=== PATIENT | female | born 1955 | race African-American/Black ===

== ENCOUNTER 2022-11-15 11:11 | Inpatient (IN) | payer MEDICARE, MEDICAID ==
[~2022-11-15] VITALS: Ht 170.2 cm; Wt 104.1 kg
[2022-11-15] MEDS ORDERED: FUROSEMIDE 40MG/4ML VIAL IV ONE (12:45)
[2022-11-15 13:07] LABS: HEMATOCRIT. 39.1 % (36.0-48.0); HEMOGLOBIN. 12.7 g/dL (12.0-16.0); MEAN CORPUSCULAR HEMOGLOBIN 27.3 pg (28.0-32.0); MEAN CORPUSCULAR VOLUME 84.1 fL (81.0-99.0); MEAN PLATELET VOLUME 9.8 fl (7.4-10.4); PLATELET 113 x1000/uL (130-400); RED BLOOD CELL COUNT 4.64 mill/uL (4.2-5.4); RED CELL DISTRIBUTION WIDTH 16.8 % (11.6-14.6)
[2022-11-15 13:14] LABS: CHLORIDE 108 mEq/L (98-107)
[2022-11-15 13:44] LABS: PLATELET ESTIMATE DECREASED
[2022-11-15] MEDS ORDERED: DEXTROSE 50% WATER 50ML SYRINGE IV ONE (14:15)
[2022-11-15] MEDS ORDERED: PIPERACILLIN/TAZOBACTAM 3.375GM/50ML PREMIX IV ONE (14:15)
[2022-11-15] MEDS ORDERED: VANCOMYCIN 1G PREMIX 200 ML IV ONE (14:15)
[2022-11-15] MEDS ORDERED: SODIUM CHLORIDE 0.9% 500 ML IV ONE (14:30)
[2022-11-15] MEDS ORDERED: SODIUM CHLORIDE 3% 500 ML IV ONE (14:30)
[2022-11-15] MEDS ORDERED: FUROSEMIDE 100MG/10ML VIAL IV NR (14:45)
[2022-11-15] MEDS ORDERED: ASPIRIN 81MG TABLET PO NR (16:15)
[2022-11-15] MEDS ORDERED: ENOXAPARIN 100MG/ML SYR SUBCUT NR (16:15)
[2022-11-15] MEDS ORDERED: IPRATROPIUM/ALBUTEROL 0.5-3(2.5)MG/3ML NEB HHN SCH (18:00)
[2022-11-15] MEDS: CEFEPIME 2,000 MG in DEXT 5% WATER 100 ML IV SCH (18:29)
[2022-11-16] MEDS ORDERED: ACETAMINOPHEN 325MG TABLET PO PRN (01:15)
[2022-11-16] MEDS ORDERED: ONDANSETRON HCL 4MG/2ML INJ IV PRN (01:15)
[2022-11-16] MEDS ORDERED: IPRATROPIUM/ALBUTEROL 0.5-3(2.5)MG/3ML NEB NEB PRN (01:15)
[2022-11-16] MEDS: FAMOTIDINE 20MG TABLET PO SCH ×2 (01:23→22:45)
[2022-11-16 04:07] LABS: HEMOGLOBIN. 11.5 g/dL (12.0-16.0); MEAN CORPUSCULAR HEMOGLOBIN 26.9 pg (28.0-32.0); MEAN CORPUSCULAR VOLUME 81.6 fL (81.0-99.0); MEAN PLATELET VOLUME 10.8 fl (7.4-10.4); PLATELET 125 x1000/uL (130-400); RED BLOOD CELL COUNT 4.29 mill/uL (4.2-5.4); RED CELL DISTRIBUTION WIDTH 17.1 % (11.6-14.6)
[2022-11-16 04:16] LABS: CHLORIDE 114 mEq/L (98-107)
[2022-11-16] MEDS: CEFEPIME 2,000 MG in DEXT 5% WATER 100 ML IV SCH ×2 (04:30→16:06)
[2022-11-16 04:34] LABS: CREATINE KINASE MB FRACTION 22.9 ng/mL (0.5-3.6)
[2022-11-16] MEDS: IPRATROPIUM/ALBUTEROL 0.5-3(2.5)MG/3ML NEB HHN SCH ×4 (06:01→17:04)
[2022-11-16] MEDS: FUROSEMIDE 40MG/4ML VIAL IVP SCH ×2 (08:00→17:57)
[2022-11-16] MEDS: ENOXAPARIN 30MG/0.3ML SYR SUBCUT SCH ×2 (09:00→22:46)
[2022-11-16 12:14] LABS: PLATELET ESTIMATE NORMAL
[2022-11-16 16:33] LABS: CREATINE KINASE MB FRACTION 9.7 ng/mL (0.5-3.6)
[2022-11-16 22:00] VITALS: BP 102/72
[2022-11-16 23:28] VITALS: BP 142/72
[2022-11-17] VITALS: BP 129/61
[2022-11-17 04:00] VITALS: BP 125/60
[2022-11-17] MEDS: FUROSEMIDE 40MG/4ML VIAL IVP SCH ×2 (06:16→17:19)
[2022-11-17 06:59] LABS: HEMATOCRIT. 33.7 % (36.0-48.0); HEMOGLOBIN. 11.1 g/dL (12.0-16.0); MEAN CORPUSCULAR HEMOGLOBIN 26.9 pg (28.0-32.0); MEAN CORPUSCULAR VOLUME 82.1 fL (81.0-99.0); MEAN PLATELET VOLUME 10.5 fl (7.4-10.4); PLATELET 118 x1000/uL (130-400); RED BLOOD CELL COUNT 4.11 mill/uL (4.2-5.4); RED CELL DISTRIBUTION WIDTH 16.5 % (11.6-14.6)
[2022-11-17 08:00] VITALS: BP 130/60
[2022-11-17] MEDS ORDERED: DEXTROSE 50% WATER 50ML SYRINGE IV PRN (08:15)
[2022-11-17] MEDS: ENOXAPARIN 30MG/0.3ML SYR SUBCUT SCH ×2 (08:55→22:26)
[2022-11-17] MEDS ORDERED: LEVOFLOXACIN 500MG PREMIX 100 ML IV SCH (09:00)
[2022-11-17 11:38] LABS: PLATELET ESTIMATE SLIGHTLY DECREASED
[2022-11-17 12:00] VITALS: BP 126/62
[2022-11-17] MEDS: BLOOD SUGAR DIAGNOSTIC STRIP TEST SCH ×3 (12:27→21:00)
[2022-11-17] MEDS: INSULIN LISPRO 100 UNITS/ML SUBCUT SCH ×3 (13:17→22:28)
[2022-11-17] MEDS: VANCOMYCIN 1.25GM PMX (XELLIA) 250 ML IV SCH (17:20)
[2022-11-17] MEDS ORDERED: PIPERACILLIN/TAZOBACTAM 3.375 G in DEXTROSE 5% WATER 50 ML IV SCH (22:00)
[2022-11-17] MEDS ORDERED: PIPERACILLIN/TAZOBACTAM 3.375GM/50ML PREMIX IV ONE (22:00)
[2022-11-17] MEDS: FAMOTIDINE 20MG TABLET PO SCH (22:19)
[2022-11-17] MEDS: AZTREONAM 1 G in DEXTROSE 5% WATER 50 ML IV SCH (22:27)
[2022-11-18] VITALS: BP 142/75
[2022-11-18 04:00] VITALS: BP 137/71
[2022-11-18] MEDS: BLOOD SUGAR DIAGNOSTIC STRIP TEST SCH ×4 (06:43→20:19)
[2022-11-18] MEDS: INSULIN LISPRO 100 UNITS/ML SUBCUT SCH ×4 (06:46→20:45)
[2022-11-18] MEDS: AZTREONAM 1 G in DEXTROSE 5% WATER 50 ML IV SCH ×3 (06:49→20:45)
[2022-11-18] MEDS: FUROSEMIDE 40MG/4ML VIAL IVP SCH ×2 (06:49→17:59)
[2022-11-18 07:00] LABS: BASOPHILS % 0.3 % (0.0-2.0); EOSINOPHILS % 0.2 % (0.0-5.0); HEMATOCRIT. 31.2 % (36.0-48.0); HEMOGLOBIN. 10.5 g/dL (12.0-16.0); LYMPHOCYTES % 7.8 % (20.0-50.0); MEAN CORPUSCULAR HEMOGLOBIN 27.3 pg (28.0-32.0); MEAN CORPUSCULAR VOLUME 80.8 fL (81.0-99.0); MEAN PLATELET VOLUME 10.2 fl (7.4-10.4); MONOCYTES % 5.5 % (2.0-8.0); NEUTROPHILS % 86.2 % (40.0-76.0); PLATELET 122 x1000/uL (130-400); RED BLOOD CELL COUNT 3.87 mill/uL (4.2-5.4); RED CELL DISTRIBUTION WIDTH 16.2 % (11.6-14.6)
[2022-11-18 08:00] VITALS: BP 129/75
[2022-11-18 10:27] LABS: CHLORIDE 110 mEq/L (98-107)
[2022-11-18] MEDS: ENOXAPARIN 30MG/0.3ML SYR SUBCUT SCH ×2 (10:46→20:44)
[2022-11-18 12:00] VITALS: BP 141/74
[2022-11-18 13:04] LABS: BG BASE EXCESS 1.8 mmol/L (-2.0-2.0); BG CARBOXYHEMOGLOBIN 0.5 % (0.5-1.5); BG DEOXYHEMOGLOBIN 7.5 % (0.0-5.0); BG FRACTION INSPIRED OXYGEN 28; BG HCO3 ACT 25.8 mmol/L (22.0-26.0); BG METHEMOGLOBIN 0.4 % (0.0-1.5); BG OXYGEN SATURATION 92.4 % (92.0-98.5); BG OXYHEMOGLOBIN 91.6 % (94.0-97.0); BG PCO2 38.2 mmHg (35.0-45.0); BG PH 7.447 (7.350-7.450); BG PO2 64.9 mmHg (75.0-100.0); BG SAMPLE SITE RIGHT BRACHIAL; BG VENT MODE NASAL CANNULA
[2022-11-18 16:00] VITALS: BP 116/72
[2022-11-18] MEDS: VANCOMYCIN 1.25GM PMX (XELLIA) 250 ML IV SCH (17:59)
[2022-11-18] MEDS: DEXAMETHASONE 4MG TABLET PO SCH (18:00)
[2022-11-18] MEDS: POTASSIUM CHLORIDE 20MEQ TABLET SR PO SCH (18:01)
[2022-11-18 20:00] VITALS: BP 127/68
[2022-11-18] MEDS: FAMOTIDINE 20MG TABLET PO SCH (20:45)
[2022-11-19] VITALS: BP 118/78
[2022-11-19 04:00] VITALS: BP 127/68
[2022-11-19] MEDS: BLOOD SUGAR DIAGNOSTIC STRIP TEST SCH ×4 (05:42→21:05)
[2022-11-19] MEDS: FUROSEMIDE 40MG/4ML VIAL IVP SCH ×2 (06:16→17:14)
[2022-11-19] MEDS: AZTREONAM 1 G in DEXTROSE 5% WATER 50 ML IV SCH ×3 (06:16→21:11)
[2022-11-19] MEDS: INSULIN LISPRO 100 UNITS/ML SUBCUT SCH ×5 (06:17→21:13)
[2022-11-19 07:54] LABS: CHLORIDE 105 mEq/L (98-107)
[2022-11-19 08:00] VITALS: BP 128/66
[2022-11-19] MEDS: DEXAMETHASONE 4MG TABLET PO SCH (08:43)
[2022-11-19] MEDS: POTASSIUM CHLORIDE 20MEQ TABLET SR PO SCH (08:43)
[2022-11-19] MEDS: ENOXAPARIN 30MG/0.3ML SYR SUBCUT SCH ×2 (08:44→21:11)
[2022-11-19] MEDS ORDERED: VANCOMYCIN 1.25GM PMX (XELLIA) 250 ML IV SCH (09:00)
[2022-11-19 12:00] VITALS: BP 120/67
[2022-11-19 16:00] VITALS: BP 125/74
[2022-11-19] MEDS: VANCOMYCIN 1.25GM PMX (XELLIA) 250 ML IV SCH (17:15)
[2022-11-19 20:00] VITALS: BP 126/75
[2022-11-19] MEDS: FAMOTIDINE 20MG TABLET PO SCH (21:11)
[2022-11-19] MEDS: INSULIN GLARGINE 100 UNITS/ML SUBCUT SCH (21:13)
[2022-11-20] VITALS: BP 121/69
[2022-11-20 04:00] VITALS: BP 131/80
[2022-11-20] MEDS: FUROSEMIDE 40MG/4ML VIAL IVP SCH ×2 (05:56→17:42)
[2022-11-20] MEDS: AZTREONAM 1 G in DEXTROSE 5% WATER 50 ML IV SCH ×3 (05:56→21:32)
[2022-11-20] MEDS: BLOOD SUGAR DIAGNOSTIC STRIP TEST SCH ×4 (06:02→21:33)
[2022-11-20] MEDS: INSULIN LISPRO 100 UNITS/ML SUBCUT SCH ×5 (06:02→21:32)
[2022-11-20 07:46] LABS: HEMATOCRIT. 34.4 % (36.0-48.0); HEMOGLOBIN. 11.1 g/dL (12.0-16.0); MEAN CORPUSCULAR HEMOGLOBIN 26.3 pg (28.0-32.0); MEAN CORPUSCULAR VOLUME 81.8 fL (81.0-99.0); MEAN PLATELET VOLUME 9.7 fl (7.4-10.4); PLATELET 178 x1000/uL (130-400); RED BLOOD CELL COUNT 4.21 mill/uL (4.2-5.4); RED CELL DISTRIBUTION WIDTH 16.9 % (11.6-14.6)
[2022-11-20 08:00] VITALS: BP 125/70
[2022-11-20 08:08] LABS: CHLORIDE 106 mEq/L (98-107)
[2022-11-20] MEDS: POTASSIUM CHLORIDE 20MEQ TABLET SR PO SCH (08:59)
[2022-11-20] MEDS: DEXAMETHASONE 4MG TABLET PO SCH (08:59)
[2022-11-20] MEDS: ENOXAPARIN 30MG/0.3ML SYR SUBCUT SCH ×2 (09:00→21:32)
[2022-11-20 11:53] LABS: PLATELET ESTIMATE NORMAL
[2022-11-20 12:00] VITALS: BP 130/78
[2022-11-20 16:00] VITALS: BP 122/69
[2022-11-20] MEDS: VANCOMYCIN 1.25GM PMX (XELLIA) 250 ML IV SCH (17:42)
[2022-11-20 20:00] VITALS: BP 134/75
[2022-11-20] MEDS: INSULIN GLARGINE 100 UNITS/ML SUBCUT SCH (21:31)
[2022-11-20] MEDS: FAMOTIDINE 20MG TABLET PO SCH (21:32)
[2022-11-21] VITALS (7 sets, daily range): BP systolic 112–141; BP diastolic 61–83
[2022-11-21] MEDS: BLOOD SUGAR DIAGNOSTIC STRIP TEST SCH ×4 (06:22→21:27)
[2022-11-21] MEDS: INSULIN LISPRO 100 UNITS/ML SUBCUT SCH ×4 (06:34→21:25)
[2022-11-21] MEDS: FUROSEMIDE 40MG/4ML VIAL IVP SCH ×2 (06:35→17:17)
[2022-11-21] MEDS: AZTREONAM 1 G in DEXTROSE 5% WATER 50 ML IV SCH ×3 (06:36→21:27)
[2022-11-21 07:54] LABS: HEMATOCRIT. 33.8 % (36.0-48.0); HEMOGLOBIN. 10.9 g/dL (12.0-16.0); MEAN CORPUSCULAR HEMOGLOBIN 26.4 pg (28.0-32.0); MEAN CORPUSCULAR VOLUME 81.5 fL (81.0-99.0); MEAN PLATELET VOLUME 9.3 fl (7.4-10.4); PLATELET 191 x1000/uL (130-400); RED BLOOD CELL COUNT 4.14 mill/uL (4.2-5.4); RED CELL DISTRIBUTION WIDTH 16.8 % (11.6-14.6)
[2022-11-21 08:30] LABS: CHLORIDE 106 mEq/L (98-107)
[2022-11-21] MEDS: IPRATROPIUM/ALBUTEROL 0.5-3(2.5)MG/3ML NEB HHN SCH ×4 (08:35→20:49)
[2022-11-21] MEDS: DEXAMETHASONE 4MG TABLET PO SCH (09:21)
[2022-11-21] MEDS: POTASSIUM CHLORIDE 20MEQ TABLET SR PO SCH (09:21)
[2022-11-21] MEDS: ENOXAPARIN 30MG/0.3ML SYR SUBCUT SCH ×2 (09:22→21:27)
[2022-11-21 10:19] LABS: BG BASE EXCESS 1.1 mmol/L (-2.0-2.0); BG CARBOXYHEMOGLOBIN 0.3 % (0.5-1.5); BG DEOXYHEMOGLOBIN 8.2 % (0.0-5.0); BG FRACTION INSPIRED OXYGEN 21; BG HCO3 ACT 25.3 mmol/L (22.0-26.0); BG METHEMOGLOBIN 0.5 % (0.0-1.5); BG OXYGEN SATURATION 91.7 % (92.0-98.5); BG PCO2 38.7 mmHg (35.0-45.0); BG PH 7.433 (7.350-7.450); BG PO2 61.5 mmHg (75.0-100.0); BG SAMPLE SITE LEFT BRACHIAL; BG TOTAL HEMOGLOBIN 11.6 g/dL (12.0-18.0); BG VENT MODE ROOM AIR
[2022-11-21 13:58] LABS: PLATELET ESTIMATE NORMAL
[2022-11-21] MEDS: VANCOMYCIN 1.25GM PMX (XELLIA) 250 ML IV SCH (17:17)
[2022-11-21] MEDS: INSULIN GLARGINE 100 UNITS/ML SUBCUT SCH (21:26)
[2022-11-21] MEDS: FAMOTIDINE 20MG TABLET PO SCH (21:27)
[2022-11-22] VITALS: BP 137/82
[2022-11-22] MEDS: IPRATROPIUM/ALBUTEROL 0.5-3(2.5)MG/3ML NEB HHN SCH ×6 (00:17→16:11)
[2022-11-22 04:00] VITALS: BP 137/82
[2022-11-22] MEDS: BLOOD SUGAR DIAGNOSTIC STRIP TEST SCH ×3 (06:05→17:57)
[2022-11-22] MEDS: INSULIN LISPRO 100 UNITS/ML SUBCUT SCH ×3 (06:13→17:10)
[2022-11-22] MEDS: FUROSEMIDE 40MG/4ML VIAL IVP SCH (06:16)
[2022-11-22] MEDS: AZTREONAM 1 G in DEXTROSE 5% WATER 50 ML IV SCH ×2 (06:16→13:52)
[2022-11-22 08:00] VITALS: BP 118/62
[2022-11-22] MEDS: POTASSIUM CHLORIDE 20MEQ TABLET SR PO SCH (10:21)
[2022-11-22] MEDS: DEXAMETHASONE 4MG TABLET PO SCH (10:21)
[2022-11-22] MEDS: ENOXAPARIN 30MG/0.3ML SYR SUBCUT SCH (11:01)
[2022-11-22 12:00] VITALS: BP 126/70
[2022-11-22 13:26] VITALS: BP 126/70
[2022-11-22] MEDS ORDERED: ALTEPLASE 2MG/VIAL ITC NR (15:00)
[2022-11-22 16:00] VITALS: BP 155/83
[2022-11-22] MEDS ORDERED: LEVO-65 MT (17:11)
[2022-11-22] MEDS ORDERED: EMPA10TA MT (17:11)
[2022-11-22] MEDS ORDERED: ASPI-1497 MT (17:11)
[2022-11-22] MEDS ORDERED: FURO-151 MT (17:11)
[2022-11-22] MEDS ORDERED: METF-414 MT (17:11)
[2022-11-22] MEDS ORDERED: MED4 MT (17:11)
[2022-11-22] MEDS: VANCOMYCIN 1.25GM PMX (XELLIA) 250 ML IV SCH (17:57)
[2022-11-23] MEDS ORDERED: FUROSEMIDE 40MG/4ML VIAL IVP SCH (09:00)
== END 2022-11-22 17:52 | disposition home health service (06) | DRG 871 ==
LOC: ER 11:11 → EDBEDREQ 14:33 → EDBEDREQSVC 14:33 → EDBEDREQTM 14:33 → MICUSO 11-16 00:13 → 7EST 11-16 22:27
PROVIDERS: ADMIT Internal Medicine; ATTEND Internal Medicine
DX: A41.89 Other specified sepsis (principal); I50.43 Acute on chronic combined systolic (congestive) and diastolic (congestive) heart failure; J96.01 Acute respiratory failure with hypoxia; J12.82 Pneumonia due to coronavirus disease 2019; U07.1 COVID-19; E44.0 Moderate protein-calorie malnutrition; M62.82 Rhabdomyolysis; I11.0 Hypertensive heart disease with heart failure; E11.649 Type 2 diabetes mellitus with hypoglycemia without coma; E03.9 Hypothyroidism, unspecified; E66.9 Obesity, unspecified; E78.5 Hyperlipidemia, unspecified; R74.01 Elevation of levels of liver transaminase levels; Z68.35 Body mass index [BMI] 35.0-35.9, adult; Z88.0 Allergy status to penicillin
CPT/HCPCS: 36415; 36600; 71045; 71250; 80048; 80053; 80202; 82375; 82550; 82553; 82805; 82962; 83036; 83605; 83880; 84145; 84484; 85025; 87426; 87804; 93005; 93970; 94640; 99291; C9803; J0692; J1650; J1815; J1940; J1956; J2997; J3370; J3490; J7040; J7060; J8540